=== PATIENT | female | born 1995 | race Caucasian/White ===

== ENCOUNTER 2021-10-03 12:35 | Outpatient (CLI) | payer MEDICAID, SELFPAY ==
[2021-10-08 18:11] LABS: HPV Reflexed? NOT INDICATED
== END 2021-10-03 23:59 | disposition short-term general hospital (02) ==
LOC: LABSPEC 12:37
PROVIDERS: Referring Provider Obstetrics & Gynecology; Visit Provider Obstetrics & Gynecology
DX: Z12.4 Encounter for screening for malignant neoplasm of cervix (principal)
CPT/HCPCS: 88175; G0145

== ENCOUNTER 2023-03-11 02:19 | Emergency (ER) | payer BC, MEDICAID, SELFPAY ==
[2023-03-11 02:20] VITALS: BP 148/87; PULSE 93; RESP 17; TEMP 36.8; O2SAT 100; BMI 21.7
--- NOTE | 2023-03-11 02:27 | RAD_ITS ---
EXAM: XR RIGHT WRIST COMPLETE, 3 OR MORE VIEWS CLINICAL INDICATION: injury injury TECHNIQUE: Frontal, lateral and oblique views of the right wrist. COMPARISON: No relevant prior studies available. FINDINGS: BONES/JOINTS: Unremarkable. No acute fracture. No subluxation. Normal alignment. Preservation of the joint space. No sclerotic or destructive changes observed. SOFT TISSUES: Unremarkable. No soft tissue swelling or gas. No radiopaque foreign body. RAD/Wrist min 3 Views IMPRESSION: Negative right wrist x-rays. Electronically Signed: Adams Medrano MD at 2:56 EDT Reading Location ID and State: [facility] / [place] , Service support ,
--- NOTE | 2023-03-11 02:28 | EDS_ITS ---
HPI History of Present Illness Chief Complaint: Upper Extremity Injury Informant: patient Narrative Narrative: [id number] healthy 27-year-old female states she was upset and slammed her hand down on a table earlier, then she went to sleep and her hand/wrist felt fine. She woke up and her wrist is really hurting severely, she points to the carpus, more at the ulnar aspect than the radial. No numbness, tingling, loss of function or other pain/injury. PFSH PFSH Medical History no medical history no medical history Home Medications levonorgestrel 21 mcg/24 hours (8 yrs) 52 mg intrauterine device (Mirena) 1 insert intrauterine ONCE 10/03/21 [History Last Taken Unknown] Allergy/AdvReac Type Severity Reaction Status Date / Time No Known Allergies Allergy Verified 10/03/21 10:24 Family History (Updated 10/03/21 @ 10:25 by Lula Hammer) Other Diabetes Hypertension Social History Smoking Status: Former smoker alcohol intake: never substance use type: does not use caffeine: No what type of physical activity do you participate in: weight training frequency: 1-2 times per week seatbelt use: always do you feel safe at home: Yes additional social history: Single ROS ROS ED Constitutional Constitutional ED: Denies chills or fever(s) Musculoskeletal Musculoskeletal: Reports extremity pain; Denies neck pain Integumentary Denies Abrasions, rash or wounds Neurologic Neurologic: Denies paresthesias or weakness EXAM Physical Exam Const Vital Signs: 03/11/23 02:20 Temperature 98.3 F Temperature Source Oral Pulse Rate 93 Respiratory Rate 17 Blood Pressure 148/87 H Blood Pressure Mean 107 Pulse Ox 100 Oxygen Delivery Method Room Air Positive well nourished and well developed General Appearance ED: well developed and NAD Neck full ROM and supple Back/Spine normal ROM and normal to inspection Extremity Extremity Narrative: Limited range of motion of the right wrist due to pain. No tenderness at the distal ulna and radius, there is tenderness in the carpus, it is diffuse but seems to be worse at the ulnar aspect. There is some tenderness at the scaphoid but no pain with axial loading of the thumb. No deformities. No significant swelling. No other bony tenderness throughout the hand or upper extremity. Neuro oriented x3, no focal motor deficits and no sensory deficits noted Sensorium / Orientation: alert Psych mental status grossly normal and thought process normal Skin no wounds Rashes: no rashes MDM MDM MDM Narrative Medical decision making narrative: Three-view x-ray series of the right wrist were obtained and on my interpretation are negative for any acute fracture or dislocation. I am not at a high level of suspicion for an occult scaphoid fracture given her exam. I think a regular Velcro cock up wrist splint is reasonable, she is in agreement in addition to a dose of Naprosyn and an ice pack here, follow-up as needed, orthopedics referral information given. Radiography Diagnostic Testing: Clinical Impression(s) from Imaging Studies Wrist X-Ray 03/11/23 02:27 IMPRESSION: Negative right wrist x-rays. Electronically Signed: Adams Medrano MD at 2:56 EDT Reading Location ID and State: [address] [place] [address] , Service support , Discharge Plan Triage Chief Complaint: Upper Extremity Injury ED Provider: Rikki Noel Dx/Rx/DC Orders Clinical Impression: Right wrist sprain Prescriptions: No Action Mirena 20 mcg/24 hours (7 yrs) 52 mg intrauterine device 1 insert intrauterine ONCE Rx Instructions: as a single dose Primary Care Provider: Care Physician,No Primary Referrals: Dannie Baez MD [Med Staff - Active Staff] - (1-2 weeks if not improving) Care Physician,No Primary [Primary Care Provider] - Disposition Disposition: Home, Self Care
[2023-03-11] MEDS: Naproxen 250 MG Tablet 500 MG PO (02:53)
== END 2023-03-11 03:06 | disposition home or self-care (01) ==
LOC: ED 02:53
PROVIDERS: Emergency Provider Emergency Medicine; Visit Provider Emergency Medicine
DX: S63.91XA Sprain of unspecified part of right wrist and hand, initial encounter (principal); W22.8XXA Striking against or struck by other objects, initial encounter; Z87.891 Personal history of nicotine dependence
CPT/HCPCS: 73110; 99283

== ENCOUNTER 2025-02-16 11:01 | Emergency (ER) | payer SELFPAY ==
[2025-02-16 11:03] VITALS: BP 127/72; PULSE 83; RESP 15; TEMP 36.5; O2SAT 100; BMI 27.6
--- NOTE | 2025-02-16 11:30 | ED.RN ---
PAIN IN THE LOWER ABD, PT DESCRIBES HER BLADDER FEELS BRUISED BUT DENIES ANY URINARY SX. NO N/V.
[2025-02-16 11:47] LABS: Mucous, Urine 0 SEEN /hpf (<or=2+); Red Blood Cells-Urine 0 SEEN /hpf (0-5)
--- NOTE | 2025-02-16 11:55 | EDS_ITS ---
HPI HPI - GI History of Present Illness Chief Complaint: Complaint Informant: patient Narrative Narrative: Lower abdominal/pelvic pain that started suddenly yesterday when [place] and squ[place] down to urinate, the pain started right after she stood back up after she was done urinating. The pain was quite significant yesterday, around 8/10, but not as bad today but persistent. Not colicky. A little worse on the right if she had that she was inside. No back discomfort, no burning when she urinates, but she feels like there is discomfort there that is better after she gets done urinating. She has no urgency. No hematuria. No fevers, chills, nausea or vomiting. No history of abdominal surgeries. She has a Mirena has not had a menstrual cycle in years, the only time she blood was when she had the Mirena changed out. She denies any vaginal bleeding or discharge now. PFSH PFSH Medical History no medical history no medical history Home Medications ?Medication ?Instructions ?Recorded ?Last Taken ?Type levonorgestrel (Mirena) 1 insert intrauterine ONCE 0 10/03/21 Unknown History Allergy/AdvReac Type Severity Reaction Status Date / Time No Known Allergies Allergy Verified 02/16/25 11:31 Family History (Updated 10/03/21 @ 10:25 by Lula Hammer) Other Diabetes Hypertension Social History Smoking Status: Current every day smoker tobacco type: e-cigarettes alcohol intake: never substance use type: does not use caffeine: No what type of physical activity do you participate in: weight training frequency: 1-2 times per week seatbelt use: always do you feel safe at home: Yes additional social history: Single ROS ROS ED Constitutional Constitutional ED: Denies chills or fever(s) Eyes Eyes: Denies change in vision or diplopia ENT ENT ED: Denies rhinorrhea or sore throat Cardiovascular Cardiovascular: Denies chest pain or palpitations Respiratory/Chest Respiratory/Chest: Denies cough or dyspnea Gastrointestinal Gastrointestinal: Reports abdominal pain; Denies diarrhea, nausea or vomiting Genitourinary Genitourinary ED: Denies dysuria or hematuria Musculoskeletal Musculoskeletal: Denies back pain or neck pain Integumentary Denies abscess or rash Neurologic Neurologic: Denies headache(s), paresthesias or weakness Psychiatric Psychiatric: Denies anxiety or suicidal thoughts EXAM Physical Exam Const Vital Signs: 02/16/25 11:03 Temperature 97.7 F L Temperature Source Oral Pulse Rate 83 Respiratory Rate 15 Blood Pressure 127/72 H Blood Pressure Mean 90 Pulse Ox 100 Oxygen Delivery Method Room Air Positive well nourished and well developed General Appearance ED: well developed and NAD HEENT Reports moist mucous membranes normocephalic and atraumatic Eyes PERRL and EOMs intact bilaterally Neck full ROM and supple Resp normal respiratory effort and clear to auscultation bilaterally Cardio regular rate, regular rhythm and no murmurs GI non-distended GI Narrative: Tender in her right pelvis, nontender at McBurney's point. No guarding or rebound. Mild suprapubic tenderness. No other abdomen tenderness. Auscultation: normoactive bowel sounds Palpation: soft Back/Spine no CVA tenderness General Back: other FROM Extremity normal to inspection General Extremety ED: Negative for edema, pulses abnormal or tenderness General Extremity: Negative for edema or pulses abnormal Neuro oriented x3, CN's II-XII intact bilaterally and no sensory deficits noted Sensorium / Orientation: awake and alert Motor Exam: strength 5/5 throughout Skin no rashes or lesions noted and no wounds MDM MDM MDM Narrative Medical decision making narrative: That her pain was worse yesterday and not as bad today, I think this is less likely to be appendicitis, especially with where she is tender and having pain, seems more distal/pelvic. We started with urinalysis, it does not show any acute infection and her is negative ruling out ectopic, so given that I considered the possibility of ruptured ovarian cyst less likely to be torsion. We obtained an emergent ultrasound of the pelvis, transvaginal. I reviewed the images and the result which I agree with, it is negative for torsion, tubo-ovarian abscess, it does show a right ovarian cyst 4-1/2 cm, and a very small amount of free fluid. I think this is all consistent with her pain, possibly had a partial rupture. She declined analgesics here. She is comfortable going home using [id number] medications since the pain is not as severe today, she more wanted to make sure it was not anything dangerous. We discussed reasons to return. Lab Data Attestation: I reviewed the patient's lab results. Labs: Laboratory Results - last 24 hr 02/16/25 02/16/25 11:40 12:35 WBC 8.0 RBC 4.54 Hgb 14.6 Hct 42.1 MCV 92.7 MCH 32.2 H MCHC 34.7 RDW Std Deviation 38.6 RDW Coeff of Eliu 11.4 L Plt Count 270 MPV 9.7 Immature Gran % (Auto) 0.400 Neut % (Auto) 64.8 Lymph % (Auto) 26.7 [place] % (Auto) 6.9 Eos % (Auto) 0.8 Baso % (Auto) 0.4 Absolute Neuts (auto) 5.2 Absolute Lymphs (auto) 2.12 Nucleated RBC % 0 Sodium 136 Potassium 4.1 Chloride 102 Carbon Dioxide 25.0 Anion Gap 9 BUN 12 Creatinine 0.76 Estim Creat Clear Calc 105.03 Est GFR (MDRD) Non-Af 108 BUN/Creatinine Ratio 16.4 Glucose 92 Calcium 9.4 Urine Color Yellow Urine Clarity Clear Urine pH 7.0 Ur Specific [place] 1.015 Urine Protein 15 H Urine Glucose (UA) Normal Urine Ketones Negative Urine Occult Blood 10 H Urine Nitrite Negative Urine Bilirubin Negative Urine Urobilinogen Normal Ur Leukocyte Esterase Negative Urine RBC 0 SEEN Urine WBC 0-5 SEEN Ur Squamous Epith Cells 0-5 SEEN Urine Bacteria RARE Urine Mucus 0 SEEN Urine Test Negative Radiography Diagnostic Testing: Clinical Impression(s) from Imaging Studies Transvaginal US 02/16/25 12:21 IMPRESSION: Right ovarian cyst measuring 4.4 cm 3.6 cm 3.1 cm. IUD is seen within the lower uterine segment. Reading Location: [place] [id number] Discharge Plan Triage Chief Complaint: Complaint ED Provider: Rikki Noel Dx/Rx/DC Orders Clinical Impression: Cyst of right ovary, Acute pelvic pain, female Instructions: ED Ovarian Cyst Prescriptions: No Action Mirena 20 mcg/24 hours (7 yrs) 52 mg intrauterine device 1 insert intrauterine ONCE Rx Instructions: as a single dose Primary Care Provider: Care Physician,No Primary Referrals: Your food counselor [Other] - 1 Week if not improving Print Language: [place] Disposition Disposition: Home, Self Care
[2025-02-16 11:57] LABS: Color, Urine Yellow (Yellow); Glucose, Dipstick Normal (Normal); Ketone-Dipstick Negative (Negative); Leukocyte Esterase-Dipstick Negative /ul (Negative); Nitrite-Dipstick Negative (Negative); Occult Blood-Urine 10 /ul (Negative); Protein-Dipstick 15 mg/dl (Negative); Specific Gravity, Urine 1.015 (1.002-1.030); Urine Bilirubin Dipstick Negative (Negative); Urine Clarity Clear (Clear); Urine Urobilinogen Normal (Normal)
[2025-02-16 12:14] LABS: Bacteria RARE /hpf (None Seen); Squamous Epithelial Cells - UA 0-5 SEEN /hpf (5-10); White Blood Cells 0-5 SEEN /hpf (0-5)
[2025-02-16 12:16] LABS: Internal QC Validated? YES +Cl - CLEAR BKGD; Pregnancy, Urine Negative Negative
--- NOTE | 2025-02-16 12:21 | US_ITS ---
PROCEDURE: TRANSVAGINAL NON- 02/16/2025 REASON FOR EXAM: RIGHT PELVIC PAIN Sudden pelvic pain. TECHNIQUE: Transabdominal pelvic ultrasound COMPARISON: None FINDINGS: Measurements: Uterus: 8 cm x 5.2 cm x 3.6 cm with a volume of 77.16 mL Endometrial Thickness: 2.8 mm. It is hyperechoic. IUD is seen within the lower uterine segment. Right Ovary: 5.7 cm x 4.5 cm x 4.1 cm with a volume of 54.28 mL. There is evidence of a 4.4 cm 3.6 cm 3.1 cm right ovarian cyst. Left Ovary: 3.8 cm x 2.3 cm x 1.6 cm with a volume of 7.11 mL. Uterus: Normal size, myometrial echotexture, and contour. Endometrium: 2.8 mm. IUD is seen within the lower uterine segment. Right ovary: Right ovarian cyst measuring 4.4 cm 3.6 cm 3.1 cm. Left ovary: Normal size and echotexture. Other: No large pelvic mass identified. Small amount of free fluid in the pelvis. US/Transvaginal Non- IMPRESSION: Right ovarian cyst measuring 4.4 cm 3.6 cm 3.1 cm. IUD is seen within the lowe r uterine segment. Reading Location: [place] [id number]
--- NOTE | 2025-02-16 12:46 | ED.RN ---
IV PLACED BY MEDIC STUDENT, NAME ON LABEL
[2025-02-16 12:57] LABS: Absolute Lymphocyte Count 2.12 X10^3/uL (0.83-4.51); Absolute Neutrophil Count 5.2 X10^3/uL (2.0-7.7); Basophil# 0.03 X10^3/uL; Basophil% 0.4 % (0-1); Eosinophil# 0.06 X10^3/uL; Eosinophils% 0.8 % (0-5); Hematocrit 42.1 % (37-47); Hemoglobin 14.6 g/dL (12.0-15.0); Lymphocyte # 2.12 X10^3/ul (0.83-4.51); Lymphocyte % 26.7 % (19-41); Mean Corp Hgb Conc 34.7 g/dL (32-36); Mean Corpuscular Hgb 32.2 pg (27.0-32.0); Mean Corpuscular Volume 92.7 fL (81-99); Mean Platelet Vol. 9.7 fl (6.2-12.0); Monocyte# 0.55 X10^3/uL; Monocyte% 6.9 % (0-10); NRBC Flagged by Analyzer 0 % (0-5); Neutrophil # 5.16 X10^3/uL (2.7-7.7); Neutrophil % 64.8 % (47-70); Platelet Count 270 K/mm3 (150-450); RBC Distribution Width CV 11.4 % (11.6-14.6); RBC Distribution Width SD 38.6 fl (35.1-43.9); Red Blood Count 4.54 M/mm3 (4.2-5.4)
[2025-02-16 14:00] LABS: Anion Gap 9 (5-15); BUN 12 mg/dL (4-19); BUN/Creat Ratio 16.4 RATIO (10-20); Calcium,Total 9.4 mg/dL (7.6-11.0); Chloride 102 mmol/L (98-108); Creatinine, Serum 0.76 mg/dL (0.70-1.20); EST Glomerular Filtration Rate 108 (>60); Estimated Creatinine Clearance 105.03 ml/min (50-250); Glucose 92 mg/dL (70-99); Potassium 4.1 mmol/L (3.3-5.1); Sodium Level 136 mmol/L (133-145)
--- NOTE | 2025-02-16 19:22 | CM.ED ---
Social Work Reason for visit: No PCP Patient confirmed that she does not currently have a PCP, stated her last doctor retired years ago and she had not found a new physician. [facility] provider list given, patient accepting of same. CARLINE Vasquez, PEARL MAKER
== END 2025-02-16 14:32 | disposition home or self-care (01) ==
PROVIDERS: Emergency Provider Emergency Medicine; Visit Provider Emergency Medicine
DX: N83.201 Unspecified ovarian cyst, right side (principal); F17.290 Nicotine dependence, other tobacco product, uncomplicated; Z97.5 Presence of (intrauterine) contraceptive device
CPT/HCPCS: 76830; 80048; 81001; 81025; 85025; 99283; A4216